=== PATIENT | female | born 1945 | race Caucasian/White ===

== ENCOUNTER 2022-04-17 10:45 | Emergency (ER) | payer BC, OTHER ==
[~2022-04-17] VITALS: Ht 165.1 cm; Wt 71.7 kg
[2022-04-17 11:00] VITALS: BP_SYST 118
--- NOTE | 2022-04-17 12:10 | NUR ---
Patient left without being seen.
== END 2022-04-17 12:10 | disposition left against medical advice (07) ==
LOC: SED 10:45
DX: M54.50 Low back pain, unspecified (principal); Z53.21 Procedure and treatment not carried out due to patient leaving prior to being seen by health care provider